=== PATIENT | female | born 1985 | race Caucasian/White ===

== ENCOUNTER 2023-01-08 22:40 | Emergency (ER) | payer OTHER ==
[2023-01-08 23:01] VITALS: O2SAT 97
[2023-01-08] MEDS: IPRATROPIUM/ALBUTEROL 3 ML NEB INH STA (23:25)
--- NOTE | 2023-01-09 00:23 | XRAY Report ---
PROCEDURE: Chest 1 View X-Ray INDICATIONS: SOA TECHNIQUE: One view of the chest was acquired. COMPARISON: None. FINDINGS: Surgical changes and devices: None. Lungs and pleura: Possible mild opacity is seen in the right medial lung base. Mediastinum: Normal heart size. Bones and chest wall: No suspicious bony lesions. Overlying soft tissues appear unremarkable. IMPRESSION: Possible mild opacity in the right medial lung base, representing atelectasis or mild airspace diseas e. Consider future imaging surveillance to assess for resolution. Reviewed by: Jeovanny Castillo MD on 01/09/2023 12:22 AM PDT Approved by: Jeovanny Castillo MD on 01/09/2023 12:22 AM PDT Station ID: [id number]
[2023-01-09] MEDS: IPRATROPIUM/ALBUTEROL 3 ML NEB INH STA (00:25)
[2023-01-09 00:27] LABS: B. PARAPERTUSSIS- RESP PCR PAN NOT DETECTED; B. PERTUSSIS- RESP PCR PANEL NOT DETECTED; C. PNEUMONIAE- RESP PCR PANEL NOT DETECTED; CORONAVIRUS 229E-RESP PCR NOT DETECTED; CORONAVIRUS HKU1-RESP PCR NOT DETECTED; CORONAVIRUS NL63-RESP PCR NOT DETECTED; CORONAVIRUS OC43-RESP PCR NOT DETECTED; HUMAN METAPNEUMOVIRUS NOT DETECTED; INFLUENZA A- RESP PCR PANEL NOT DETECTED; INFLUENZA B - RESP PCR PANEL NOT DETECTED; M. PNEUMONIAE- RESP PCR PANEL NOT DETECTED; PARAINFLUENZA VIRUS 1 NOT DETECTED; PARAINFLUENZA VIRUS 2 NOT DETECTED; PARAINFLUENZA VIRUS 3 NOT DETECTED; PARAINFLUENZA VIRUS 4 NOT DETECTED; RHINOVIRUS/ENTEROVIRUS NOT DETECTED; RSV- RESP PCR PANEL NOT DETECTED; SARS-CoV-2 -RESP PCR PANEL NOT DETECTED
--- NOTE | 2023-01-09 00:31 | ED Physician Documentation ---
PD HPI DYSPNEA - Stated complaint Stated Complaint: SOA - Chief complaint Chief Complaint: Resp - History obtained from History obtained from: Patient - Additional information Additional information: Patient is a 37-year-old female with a history of exercise-induced asthma presenting for evaluation of feeling short of breath since yesterday after hiking. She used her albuterol inhaler without any improvement. She reports having URI symptoms a week ago. Denies fever. No chest pain or abdominal pain. Review of Systems Constitutional: denies: Fever Cardiac: denies: Chest pain / pressure Respiratory: reports: Dyspnea, Cough GI: denies: Abdominal Pain PD PAST MEDICAL HISTORY - Present Medications Home Medications: Ambulatory Orders Medication Instructions Recorded Confirmed Albuterol Sulf [Ventolin Hfa 1 - 2 puffs INH Q4HR PRN #1 each 01/09/23 Inhaler] Amoxicillin 1,000 mg PO TID 10 Days #60 cap 01/09/23 predniSONE [Deltasone] 60 mg PO DAILY 5 Days #15 tablet 01/09/23 - Allergies Allergies/Adverse Reactions: Allergies Allergy/AdvReac Type Severity Reaction Status Date / Time No Known Drug Allergies Allergy Verified 01/08/23 22:51 PD ED PE NORMAL - General General: Alert and oriented X 3, No acute distress, Well developed/nourished - HEENT HEENT: Atraumatic, Moist mucous membranes, Pharynx benign - Neck Neck: Supple, no meningeal sign - Cardiac Cardiac: RRR, No murmur - Respiratory Respiratory: No respiratory distress, Other (Diffuse expiratory wheezing) - Abdomen Abdomen: Soft, Non tender - Derm Derm: Warm and dry - Extremities Extremities: No edema - Neuro Neuro: Normal speech Results - Vitals Vitals: Vital Signs - 24 hr 01/08/23 01/08/23 01/08/23 22:46 22:55 23:25 Temperature 36.9 C Heart Rate 103 H 86 Respiratory 18 22 24 Rate Blood Pressure 138/91 H O2 Saturation 95 97 If not protocol 2 2 : Oxygen Flow, liters/minute 01/09/23 01/09/23 01/09/23 00:30 01:12 02:11 Temperature 36.5 C Heart Rate 86 99 107 H Respiratory 24 18 28 H Rate Blood Pressure 153/85 H O2 Saturation 97 If not protocol 2 2 : Oxygen Flow, liters/minute 01/09/23 02:20 Temperature 36.8 C Heart Rate 118 H Respiratory 20 Rate Blood Pressure 150/80 H O2 Saturation 97 If not protocol : Oxygen Flow, liters/minute Oxygen O2 Source Room air Oxygen Flow Rate 2 - Labs Labs: Laboratory Tests 01/08/23 23:20 Nasal Adenovirus (PCR) NOT DETECTED Nasal B. parapertussis DNA (PCR) NOT DETECTED Nasal Coronavir 229E PCR NOT DETECTED Nasal Coronavir HKU1 PCR NOT DETECTED Nasal Coronavir NL63 PCR NOT DETECTED Nasal Coronavir OC43 PCR NOT DETECTED Nasal Enterovir/Rhinovir PCR NOT DETECTED Nasal Influenza B PCR NOT DETECTED Nasal Influenza A PCR NOT DETECTED Nasal Parainfluen 1 PCR NOT DETECTED Nasal Parainfluen 2 PCR NOT DETECTED Nasal Parainfluen 3 PCR NOT DETECTED Nasal Parainfluen 4 PCR NOT DETECTED Nasal RSV (PCR) NOT DETECTED Nasal B.pertussis DNA PCR NOT DETECTED Nasal C.pneumoniae (PCR) NOT DETECTED Andrzej Human Metapneumo PCR NOT DETECTED Nasal M.pneumoniae (PCR) NOT DETECTED Nasal SARS-CoV-2 (PCR) NOT DETECTED PD Medical Decision Making - ED course Complexity details: reviewed results, re-evaluated patient, d/w patient ED course: Patient is a 37-year-old female with a history of exercise-induced asthma with worsening shortness of breath since going on a hike yesterday and no relief from her inhaler. Oxygen saturations are stable. She is wheezing on exam. Chest x-ray shows concerns for right-sided pneumonia. She has recently had URI symptoms. Respiratory swab is negative for COVID, influenza, RSV and other respiratory viruses. Patient is feeling better after several neb treatments and initiation of prednisone. She is not requiring oxygen. Discussed treatment plan with course of antibiotics for pneumonia as well as prednisone and inhaler for asthma. She is advised on strict return precautions. Departure - Departure Disposition: Home, Self Care Clinical Impression: CAP (community acquired pneumonia), Asthma exacerbation Condition: Stable Instructions: ED Bronchitis Asthmatic, ED Pneumonia Adult Prescriptions: Albuterol Sulf [Ventolin Hfa Inhaler] 1 - 2 puffs INH Q4HR PRN #1 each PRN Reason: Shortness Of Air/Wheezing Amoxicillin 1,000 mg PO TID 10 Days #60 cap predniSONE [Deltasone] 60 mg PO DAILY 5 Days #15 tablet Comments: Your respiratory swab is negative for COVID, RSV, influenza and other common cold viruses. Your chest x-ray does show pneumonia in the right lung. You have also been treated for an asthma exacerbation and I have started you on a course of prednisone. I have sent prescriptions for an albuterol inhaler, prednisone and an antibiotic to [facility] in [place]. Please return to the emergency department with any worsening symptoms. Forms: PCP List Discharge Date/Time: 01/09/23 02:24
[2023-01-09] MEDS: predniSONE 20 MG TABLET PO STA (01:05)
[2023-01-09] MEDS: ALBUTEROL NEB 2.5 MG/3 ML INH STA (02:05)
[2023-01-09] MEDS: AMOXICILLIN 250 MG CAPSULE PO STA (02:17)
[2023-01-09 02:27] VITALS: BP 150/80
== END 2023-01-09 02:24 | disposition home or self-care (01) ==
LOC: EDBD → ED 22:40
DX: J18.9 Pneumonia, unspecified organism (principal); J45.901 Unspecified asthma with (acute) exacerbation; Z20.822 Contact with and (suspected) exposure to COVID-19; Z79.899 Other long term (current) drug therapy
CPT/HCPCS: 87633; 94640; 94664; 99284; 99285

== ENCOUNTER 2023-01-15 22:24 | Inpatient (IN) | payer OTHER ==
[2023-01-15] MEDS ORDERED: methylPREDNISolone SUCCINATE 125 MG/2 ML VIAL IVP STA (22:34)
[2023-01-15] MEDS ORDERED: IPRATROPIUM/ALBUTEROL 3 ML NEB INH STA (22:34)
--- NOTE | 2023-01-15 22:36 | ED Physician Documentation ---
PD HPI DYSPNEA - Stated complaint Stated Complaint: SOA - Chief complaint Chief Complaint: Resp - History obtained from History obtained from: Patient, Family - Additional information Additional information: 37-year-old woman with history of exercise-induced asthma, never hospitalized for same felt short of breath after a hike a week ago. Was seen by my partner here on that day, and improved after a nebulizer. Respiratory viral panel was negative and a chest x-ray showed possible mild pneumonia and she was started on amoxicillin and prednisone. Since then she is worsened and much worse today with significant shortness of breath, chest tightness, cough. PD PAST MEDICAL HISTORY - Past Medical History Respiratory: Asthma - Past Surgical History Past Surgical History: No - Present Medications Home Medications: Ambulatory Orders Medication Instructions Recorded Confirmed Albuterol Sulf [Ventolin Hfa 1 - 2 puffs INH Q4HR PRN #1 each 01/09/23 Inhaler] Amoxicillin 1,000 mg PO TID 10 Days #60 cap 01/09/23 predniSONE [Deltasone] 60 mg PO DAILY 5 Days #15 tablet 01/09/23 - Allergies Allergies/Adverse Reactions: Allergies Allergy/AdvReac Type Severity Reaction Status Date / Time No Known Drug Allergies Allergy Verified 01/15/23 22:36 - Social History Does the pt smoke?: No Smoking Status: Never smoker Does the pt drink ETOH?: No Does the pt have substance abuse?: No - Immunizations Immunizations are current?: Yes - POLST Patient has POLST: No PD ED PE NORMAL - Vitals Vital signs reviewed: Yes - General General: Alert and oriented X 3, Other (She appears ill and somewhat breathless and is anxious and tripoding) - HEENT HEENT: PERRL, Pharynx benign - Neck Neck: Supple, no meningeal sign, No bony TTP - Cardiac Cardiac: Other (Tachycardic but regular without murmur) - Respiratory Respiratory: Other (Severely diminished breath sounds throughout, tachypneic with wheezing throughout, most diminished at the right base.) - Extremities Extremities: No edema, No calf tenderness / cord - Neuro Neuro: Alert and oriented X 3, Normal speech Results - Vitals Vitals: Vital Signs - 24 hr 01/15/23 01/15/23 22:25 22:40 Temperature 36.5 C Heart Rate 125 H 124 H Respiratory 19 28 H Rate Blood Pressure 167/135 H O2 Saturation 91 L If not protocol 2 : Oxygen Flow, liters/minute Oxygen O2 Source Nasal cannula Oxygen Flow Rate 2 - EKG (time done) 2245 EKG releavant findings:: EKG personally interpreted by author of this note. Relevant findings are: Rate: Rate (enter#) (127) Rhythm: Sinus tachycardia [place]: Normal Intervals: Normal [place] QRS: Normal Ischemia: Non specific changes. No: ST elevation c/w ischemia Computer interpretation: Agree with computer - Labs Labs: Laboratory Tests 01/15/23 22:43 WBC 14.9 H RBC 4.63 Hgb 14.1 Hct 44.0 MCV 95.0 MCH 30.5 MCHC 32.0 RDW 12.2 Plt Count 232 MPV 11.1 H Neut # (Auto) 11.7 H Lymph # (Auto) 1.7 [place] # (Auto) 0.9 Eos # (Auto) 0.4 Baso # (Auto) 0.1 Absolute Nucleated RBC 0.00 Nucleated RBC % 0.0 PD Medical Decision Making - ED course ED course: 37-year-old woman with history of mild asthma was seen a week ago for an exacerbation potentially in the setting of a mild right-sided pneumonia as well placed on antibiotics and steroids. She is worse now and appears ill tonight with significant respiratory difficulty, wheezing. She was attended to immediately and is noted to be tachycardic, hypertensive, and modestly hypoxic. Administered a DuoNeb with 4 more albuterol nebs. Repeat chest x-ray to my eye does not show significant pneumonia, radiology read pending. Care to Dr. Aldana at 11 PM shift change pending reevaluation after initial therapeutic measures and follow-up on diagnostics. - Critical Care Time(min): 35 Time Includes: Direct patient care, Review records, Reassess patient, Document care, Coordinate care, Family consult for tx dec Data interpretation: Labs, Pulse ox Procedures included in critical care time: Peripheral IV Procedures excluded from critical care time: EKG Departure - Departure Clinical Impression: Status asthmaticus Forms: PCP List
[2023-01-15 22:48] LABS: BASOPHILS # (AUTO) 0.1 10^3/uL (0.0-0.1); BASOPHILS % (AUTO) 0.4 %; EOSINOPHILS # (AUTO) 0.4 10^3/uL (0.0-0.7); EOSINOPHILS % (AUTO) 2.8 %; HGB - HEMOGLOBIN 14.1 g/dL (12.0-16.0); LYMPHOCYTES # (AUTO) 1.7 10^3/uL (1.5-3.5); LYMPHOCYTES % (AUTO) 11.6 %; MEAN CORPUSCULAR HEMOGLOBIN 30.5 pg (27.0-31.0); MEAN PLATELET VOLUME 11.1 fL (7.9-10.8); MONOCYTES # (AUTO) 0.9 10^3/uL (0.0-1.0); NEUTROPHILS # (AUTO) 11.7 10^3/uL (1.5-6.6); NEUTROPHILS % (AUTO) 78.7 %; PLT - PLATELET COUNT 232 10^3/uL (130-450); RED BLOOD COUNT 4.63 10^6/uL (4.20-5.40); RED CELL DISTRIBUTION WIDTH 12.2 % (12.0-15.0); WHITE BLOOD COUNT 14.9 x10^3/uL (4.8-10.8)
[2023-01-15] MEDS ORDERED: ALBUTEROL NEB 2.5 MG/3 ML INH STA (22:51)
[2023-01-15 23:05] LABS: PHOSPHORUS 5.5 mg/dL (2.5-5.0)
--- NOTE | 2023-01-15 23:05 | XRAY Report ---
PROCEDURE: Chest 1 View X-Ray INDICATIONS: dyspnea TECHNIQUE: One view of the chest was acquired. COMPARISON: 01/08/2023. FINDINGS: Surgical changes and devices: None. Lungs and pleura: No pleural effusions or pneumothorax. Lungs are clear. Mediastinum: Mediastinal contours appear normal. Heart size is normal. Bones and chest wall: No suspicious bony lesions. Overlying soft tissues appear unremarkable. IMPRESSION: No acute cardiopulmonary process. Reviewed by: Juan José Aldana MD on 01/15/2023 11:03 PM PDT Approved by: Juan José Aldana MD on 01/15/2023 11:03 PM PDT Station ID: [id number]
[2023-01-15 23:09] LABS: TROPONIN I HIGH SENSITIVITY 3.6 ng/L (2.3-14.8)
[2023-01-15 23:52] LABS: ALBUMIN 4.3 g/dL (3.2-5.5); ALBUMIN/GLOBULIN RATIO 1.8 (1.0-2.2); BILIRUBIN,TOTAL 0.2 mg/dL (0.2-1.0); CALCIUM 9.3 mg/dL (8.5-10.3); CREATININE 0.7 mg/dL (0.6-1.3); POTASSIUM 4.1 mmol/L (3.5-4.5); TOTAL PROTEIN 6.7 g/dL (6.4-8.9)
[2023-01-16] MEDS ORDERED: LORazepam 2 MG/ML VIAL IVP STA (00:14)
[2023-01-16] MEDS ORDERED: ALBUTEROL NEB 2.5 MG/3 ML INH STA (00:31)
--- NOTE | 2023-01-16 00:49 | ED Physician Documentation ---
ED Addendum - Addendum Addendum: 01/16/23 00:45 The patient was signed out to me at change of shift, pending response to medications after presenting to the emergency department with severe difficulty breathing. Please see Dr. Ott's HPI for further details on the development of yara's asthma exacerbation. The patient was in the midst of receiving for albuterol nebulizer treatments along with a DuoNeb for a total of 12.5 mg of albuterol and 0.5 mg of Atrovent. She had also received IV Solu-Medrol. The drea harp was quite a bit improved in terms of air movement after the nebulizer treatments, compared with her presentation on arrival; however, she did still complain of shortness of breath. She was on 4 L of oxygen per nasal cannula initially because of low oxygen saturations in the 80s on room air. The patient was still having an oxygen saturation ranging from 89 to 91% even on the 4 L of oxygen, and still had some tight wheezing throughout her airways. She did have moderate air movement through her bilateral lung garcia, but with the persistent wheezing and the persistent mild hypoxia despite supplemental oxygen, I felt she should be admitted to the hospital. I spoke with the telehospitalist Dr. Beverly, who agreed to admit the patient to her service. Final impression: Status asthmaticus Disposition: Admit to hospitalist service in serious condition. 01/16/23 00:49
--- NOTE | 2023-01-16 00:49 | HISTORY & PHYSICAL EXAMINATION ---
Chief Complaint - Chief Complaint Chief Complaint: Shortness of breath History of Present Illness - Admitted From Admitted From:: ER - History Obtained From Records Reviewed: Yes History obtained from: Pt, Pt's partner, staff, chart Exam Limitations: Virtual exam - History of Present Illness HPI Comment/Other: H&P was conducted via video remotely, using Access Cart. Patient is in [place] Physician is in [place]. Pt's partner Aaron is at bedside. 37 yo F with PMH of Asthma presented to the ER with c/o 1 week h/o Shortness of breath. Pt's asthma is usually exercise-induced. She has never been hospitalized for her Asthma. About 2 weeks ago, she had URI symptoms, which resolved. Then, 1 week ago, she went hiking. She began to have Shortness of breath with wheezing and dry cough on the hike and came to the ER on 01/09/23 after the hike for these symptoms. Her Shortness of breath improved after a nebulizer treatment in the E R. Respiratory viral panel was negative and a chest x-ray showed possible mild pneumonia. Pt was discharged home with prescriptions for Amoxicillin and Prednisone. Over the past week, her symptoms have worsened. She c/o worse Shortness of breath with wheezing, dry cough, chest tightness, subjective F/C. No sputum. + Nausea. Pt had 1 episode of vomiting in the ER, non-bloody. No abdo pain. No BM change. +H/A. Pt has not slept x 1 week. +Anxiety. In the ER, SpO2 90% RA, 93% 2L NC O2, BP 167/135, HR 124, RR 28, WBC 14.9 CXR: NAD Pt was given Albuterol x 4 nebs, Duoneb x 1, SoluMedrol 125 mg IV, Ativan 1 mg IV in the ER. History - Past Medical History Respiratory: reports: Asthma, Pneumonia Psych: reports: Anxiety Other Past Medical History: Recent Pneumonia - POLST Patient has POLST: No Meds/Allgy - Home Medications Home Medications: Ambulatory Orders Medication Instructions Recorded Confirmed Albuterol Sulf [Ventolin Hfa 1 - 2 puffs INH Q4HR PRN #1 each 01/09/23 01/15/23 Inhaler] Amoxicillin 1,000 mg PO TID 10 Days #60 cap 01/09/23 01/15/23 - Allergies Allergies/Adverse Reactions: Allergies Allergy/AdvReac Type Severity Reaction Status Date / Time No Known Drug Allergies Allergy Verified 01/15/23 23:04 Review of Systems - All Other Systems All Other Systems: reports: Reviewed and negative Exam - Vital Signs Reviewed Vital Signs: Yes Vital Signs: Vital Signs x48h Temp Pulse Resp BP Pulse Ox O2 Flow Rate 01/16/23 00:00 125 H 33 H 155/95 H 92 4 01/15/23 23:30 135 H 24 144/89 H 90 L 01/15/23 23:01 131 H 25 H 119/95 H 98 01/15/23 22:55 126 H 28 H 2 01/15/23 22:40 124 H 28 H 2 01/15/23 22:25 36.5 C 125 H 19 167/135 H 91 L - Physical Exam General Appearance: positive: Mild distress, Anxious Eyes Bilateral: positive: EOMI, No scleral icterus Respiratory: positive: Other (Access cart stethoscope not working; per ER Provider: Severely diminished breath sounds throughout, tachypneic with wheezing throughout, most diminished at the right base.) Cardiovascular: positive: Other (Access cart stethoscope not working; per ER Provider: RR, Tachycardia, no murmurs) Abdomen: positive: Other (per ER Provider: non-distended, NT, Soft) Extremities: positive: Full ROM, No pedal edema Neurologic/Psychiatric: positive: Oriented x3, CN's nml (2-12) Conclusion/Plan - Problem List (1) Asthma exacerbation Conclusion/Plan: Asthma Exacerbation Shortness of Breath Cough Hypoxia Leukocytosis Tachycardia Tachypnea Outpatient treatment Failure -O2 support PRN -Duonebs PRN -Mag SO4 -steroid MDI, Singulair -SoluMedrol 40 mg IV daily, Rocephin Elevated BP No h/o HTN -Hydralazine PRN Nausea/Vomiting -IVF -clear liquid diet; advance as tolerated -anti-emetics PRN Anxiety Insomnia -D/W pt -Restoril ordered PRN Insomnia -Ativan PRN anxiety Hyperglycemia -Glc 138 -poss d/t steroids -check Hgba1c VTE Prophylaxis: Lovenox Code Status: Full Code ~Deedee Beverly MD Hospitalist - Lab Results Fish Bones: 01/15/23 22:43 01/15/23 22:43
[2023-01-16] MEDS ORDERED: ONDANSETRON 4 MG/2 ML VIAL IVP PRN (00:55)
[2023-01-16] MEDS ORDERED: SODIUM CHLORIDE FLUSH 0.9% 10 ML SYRINGE IVP PRN (00:55)
[2023-01-16] MEDS ORDERED: ONDANSETRON ODT 4 MG TABLET TL PRN (00:55)
[2023-01-16] MEDS ORDERED: SODIUM CHLORIDE 0.9% 1,000 ML IV SCH ×2 (01:00→07:45)
[2023-01-16] MEDS ORDERED: TEMAZEPAM 15 MG CAPSULE PO PRN (01:01)
[2023-01-16] MEDS ORDERED: MAGNESIUM SULFATE 1 GM/2 ML VIAL IVP STA (01:28)
[2023-01-16] MEDS ORDERED: hydrALAZINE 10 MG TABLET PO PRN (01:30)
[2023-01-16] MEDS: SODIUM CHLORIDE FLUSH 0.9% 10 ML SYRINGE IVP SCH ×3 (02:05→21:13)
[2023-01-16] MEDS ORDERED: MAGNESIUM SULFATE 2 GRAM 2 GM/50 ML BAG IV ONE (03:00)
[2023-01-16] MEDS: LORazepam 1 MG TABLET PO PRN ×3 (05:21→21:13)
[2023-01-16] MEDS: ALBUTEROL NEB 2.5 MG/3 ML INH PRN ×3 (05:34→19:09)
[2023-01-16 05:47] LABS: BASOPHILS # (AUTO) 0.1 10^3/uL (0.0-0.1); BASOPHILS % (AUTO) 0.3 %; EOSINOPHILS % (AUTO) 0.2 %; HCT - HEMATOCRIT 41.9 % (37.0-47.0); HGB - HEMOGLOBIN 13.6 g/dL (12.0-16.0); LYMPHOCYTES # (AUTO) 0.4 10^3/uL (1.5-3.5); LYMPHOCYTES % (AUTO) 2.7 %; MEAN CORPUSCULAR HEMOGLOBIN 30.6 pg (27.0-31.0); MEAN CORPUSCULAR HGB CONC 32.5 g/dL (32.0-36.0); MEAN CORPUSCULAR VOLUME 94.2 fL (81.0-99.0); MEAN PLATELET VOLUME 10.8 fL (7.9-10.8); MONOCYTES # (AUTO) 0.1 10^3/uL (0.0-1.0); MONOCYTES % (AUTO) 0.8 %; NEUTROPHILS # (AUTO) 14.9 10^3/uL (1.5-6.6); NEUTROPHILS % (AUTO) 95.5 %; PLT - PLATELET COUNT 307 10^3/uL (130-450); RED BLOOD COUNT 4.45 10^6/uL (4.20-5.40); RED CELL DISTRIBUTION WIDTH 12.2 % (12.0-15.0); WHITE BLOOD COUNT 15.6 x10^3/uL (4.8-10.8)
[2023-01-16 06:05] LABS: CALCIUM 9.1 mg/dL (8.5-10.3); CREATININE 0.6 mg/dL (0.6-1.3); MAGNESIUM 2.4 mg/dL (1.7-2.3); POTASSIUM 4.2 mmol/L (3.5-4.5)
[2023-01-16] MEDS: BUDESONIDE 0.5 MG/2 ML NEB INH SCH ×2 (06:08→19:08)
[2023-01-16] MEDS: ACETAMINOPHEN 325 MG TABLET PO PRN ×2 (08:41→12:48)
[2023-01-16] MEDS: methylPREDNISolone SUCCINATE 40 MG/ML VIAL IVP SCH ×3 (08:41→21:13)
[2023-01-16] MEDS: cefTRIAXone 1 GM in SODIUM CHLORIDE 0.9% MINIBAG 100 ML IV SCH (08:56)
[2023-01-16] MEDS ORDERED: methylPREDNISolone SUCCINATE 40 MG/ML VIAL IVP SCH (09:00)
[2023-01-16] MEDS: AZITHROMYCIN INJ 500 MG in SODIUM CHLORIDE 0.9% 250 ML IV SCH (10:06)
[2023-01-16] MEDS: ENOXAPARIN 40 MG/0.4 ML SYRINGE SUBQ SCH (10:12)
[2023-01-16 11:50] LABS: ESTIMATED AVERAGE GLUCOSE 105 mg/dL (70-100); HEMOGLOBIN A1c% 5.3 % (4.27-6.07)
[2023-01-16] MEDS ORDERED: MONTELUKAST 10 MG TABLET PO SCH (21:00)
[2023-01-17] MEDS: SODIUM CHLORIDE FLUSH 0.9% 10 ML SYRINGE IVP SCH ×2 (00:04→09:32)
[2023-01-17 05:25] LABS: BASOPHILS % (AUTO) 0.2 %; HCT - HEMATOCRIT 41.4 % (37.0-47.0); HGB - HEMOGLOBIN 13.3 g/dL (12.0-16.0); LYMPHOCYTES # (AUTO) 0.9 10^3/uL (1.5-3.5); LYMPHOCYTES % (AUTO) 4.5 %; MEAN CORPUSCULAR HEMOGLOBIN 30.2 pg (27.0-31.0); MEAN CORPUSCULAR HGB CONC 32.1 g/dL (32.0-36.0); MEAN CORPUSCULAR VOLUME 94.1 fL (81.0-99.0); MEAN PLATELET VOLUME 10.7 fL (7.9-10.8); MONOCYTES % (AUTO) 4.8 %; NEUTROPHILS # (AUTO) 18.5 10^3/uL (1.5-6.6); NEUTROPHILS % (AUTO) 89.7 %; PLT - PLATELET COUNT 304 10^3/uL (130-450); RED CELL DISTRIBUTION WIDTH 12.6 % (12.0-15.0); WHITE BLOOD COUNT 20.7 x10^3/uL (4.8-10.8)
[2023-01-17] MEDS: methylPREDNISolone SUCCINATE 40 MG/ML VIAL IVP SCH (06:18)
[2023-01-17 06:30] LABS: DIFFERENTIAL COMMENT MANUAL=AUTO DIFF; PLATELET ESTIMATE, MANUAL NORMAL (130-450,000) (NORMAL); RBC MORPHOLOGY (MULTIPLE) NORMAL APPEARANCE (NORMAL)
[2023-01-17] MEDS: BUDESONIDE 0.5 MG/2 ML NEB INH SCH (07:54)
[2023-01-17] MEDS: cefTRIAXone 1 GM in SODIUM CHLORIDE 0.9% MINIBAG 100 ML IV SCH (08:41)
[2023-01-17] MEDS: AZITHROMYCIN INJ 500 MG in SODIUM CHLORIDE 0.9% 250 ML IV SCH (09:28)
[2023-01-17] MEDS: ENOXAPARIN 40 MG/0.4 ML SYRINGE SUBQ SCH (09:31)
[2023-01-17 09:51] LABS: CALCIUM 9.3 mg/dL (8.5-10.3); CREATININE 0.7 mg/dL (0.6-1.3); POTASSIUM 3.9 mmol/L (3.5-4.5)
[2023-01-17 11:39] VITALS: BP 121/76; O2SAT 95
--- NOTE | 2023-01-17 11:51 | PHARMACY PROGRESS NOTE ---
- Best Possible Medication History Admit Date and Time: 01/16/23 0055 Processed by: Pharmacy Medication History completed: Yes Patient Interview: Completed Secondary Source(s): Pharmacy records, Insurance records As the person ultimately responsible for medication therapy, providers are able to order a medication from an existing home medication list in [facility] via the "Reconcile Routine" prior to Confirmation of that medication by help desk support. Such practice is discouraged except when the physician, in their clinical judgment, deems that a medical need exists for a medication without regard to previous use.
--- NOTE | 2023-01-17 11:54 | Discharge Plan ---
Discharge Plan Problem Reviewed?: Yes Disposition: Home, Self Care Condition: Fair Prescriptions: Fluticasone/Salmeterol [Advair 250-50 Diskus] 1 each IH BID #1 each methylPREDNISolone [Medrol Dose Pack] 1 each PO .PACKAGEINSTRUCTIONS 6 Days #1 each Montelukast [Singulair] 10 mg PO QPM #30 tab Diet: Regular Activity Restrictions: Additional Comments (No work until January 23.) Shower Restrictions: No Driving Restrictions: No Health Concerns: You have a long history of probable exercise-induced asthma but have not been formally diagnosed with that. But in the last week, after bronchitis with a viral infection, coughing appears to be worse. It accelerated to the point of a jens asthma attack. You were treated in the outpatient setting with an inhaler but that did not improve your wheezing and coughing and you came to the emergency room. You were found to have severe asthma with a very low oxygen level. You were struggling to breathe. You have now been stabilized with steroids, allergy medication in the form of Singulair, inhalation treatment with albuterol asthma medicine. You were also on intravenous steroids. Plan of Treatment: Your chest x-ray does not have signs of infection, but some studies show that if you give the patient empiric antibiotics, they sometimes do better. You received 2 days of ceftriaxone, 2 days of azithromycin. Please complete the amoxicillin therapy that was ordered on January 09. I have also started you on a new long-acting bronchodilator that has both a bro nchial tube horse buyer, and anti-inflammatory. The horse buyer is salmeterol. The anti-inflammatory is fluticasone. Take this medication once in the morning, and once in the evening. Make sure you rinse your mouth out afterwards because it can cause Amparo of the mouth. The other medication will be your Ventolin bronchodilator that you will take 1 puff 3 times a day. As you improve that can be as needed. You do not have to take that on a regular basis. Please establish yourself with a primary care provider. The primary care provider will need to taper your use of the Advair long-acting inhaler. You are currently on 250 mcg of steroids. You can then be tapered to 100 mcg of fluticasone. Eventually will be tapered off completely and only be using the Ventolin as needed. Remember that I explained that asthma is a disease that is always present. It can flare and cause severe asthma/wheezing. But and then go back down to having no symptoms. But it is always there. Your primary care provider can guide you about when to add medications or go back down on medications. You will also be discharged on a tapering dose of oral steroids. And I would also like you to take Singulair 10 mg a day for anti-inflammation of the bronchial tubes. That may also be taken off in the next month but please discuss this with your primary care provider. Care Goals: To have minimal asthma symptoms. Assessment: Patient is alert, oriented to person place and time. Committed to finding a new primary care provider in stabilizing her asthma disease. No Smoking: If you smoke, Please STOP! Call for help.
--- NOTE | 2023-01-17 12:08 | DISCHARGE SUMMARY ---
"Discharge Summary Admit Date: 01/16/23 Discharge Date: 01/17/23 Condition at Discharge: Fair Discharge Disposition: 01 Home, Self Care - DIAGNOSES Discharge Diagnoses with Status of Each Condition: 1. Acute respiratory failure with hypoxia 2. Status asthmaticus 3. Outpatient treatment failure 4. Elevated blood pressure 5. Nausea and vomiting 6. Anxiety 7. Hyperglycemia due to steroids - HPI History of Present Illness: 37 yo F with PMH of Asthma presented to the ER with c/o 1 week h/o Shortness of breath. Pt's asthma is usually exercise-induced. She has never been hospitalized for her Asthma. About 2 weeks ago, she had URI symptoms, which resolved. Then, 1 week ago, she went hiking. She began to have Shortness of breath with wheezing and dry cough on the hike and came to the ER on 01/09/23 after the hike for these symptoms. Her Shortness of breath improved after a nebulizer treatment in the ER. Respiratory viral panel was negative and a chest x-ray showed possible mild pneumonia. Pt was discharged home with prescriptions for Amoxicillin and Prednisone. Over the past week, her symptoms have worsened. She c/o worse Shortness of breath with wheezing, dry cough, chest tightness, subjective F/C. No sputum. + Nausea. Pt had 1 episode of vomiting in the ER, non-bloody. No abdo pain. No BM change. +H/A. Pt has not slept x 1 week. +Anxiety. In the ER, SpO2 90% RA, 93% 2L NC O2, BP 167/135, HR 124, RR 28, WBC 14.9 CXR: NAD Pt was given Albuterol x 4 nebs, Duoneb x 1, SoluMedrol 125 mg IV, Ativan 1 mg IV in the ER. - Past Medical History Respiratory: reports: Asthma, Pneumonia Psych: reports: Anxiety Other Past Medical History: Recent Pneumonia - CONSULTS | PROCEDURES Procedures: No acute cardiopulmonary process on chest x-ray - HOSPITAL COURSE Hospital Course: The patient was placed on intravenous steroids, empiric antibiotics, Singulair, Perforomist and budesonide. She was initially tripoding, struggling to breathe, tachypneic and hypoxic. Within 12 to 18 hours she was able to lay back comfortably. Within 24 to 30 hours she was sitting up in a chair. She recovered much more quickly than we thought she was going to. From her history, and failure to respond to outpatient management, we thought she would need 48 to 72 hours. She is now discharged in stable condition at 24 hours. Asthma as a disease process was described to her. She may have exercise-induced asthma versus atopic asthma. Is been going on for months if not all of her life with the first severe abduction laceration being this episode. I am asking her to please establish yourself with a primary care provider. Hopefully her asthma can be stabilized through their care. If not she can be referred to pulmo nology. Once her asthma started becoming better controlled, blood pressure came down with this. Glucose is noted to be elevated and most likely due to her steroids. A1c is 5.3%. But I would asked that she follow-up with us in the outpatient setting. At discharge I am giving her prescription for Advair but it can be substituted to other long-acting medication. She will continue albuterol. She will complete empiric antibiotics with amoxicillin for 4 more days. I am starting Singulair. Medrol Dosepak. Again, I am emphasized that she needs to follow through with her primary care provider. I am asking her not to work until January 23. She is discharged in stable condition and has already gotten out of bed and brush her teeth, brush her hair, and put on make-up. She is anxious to go home. She was tripoding yesterday, and today she is sitting comfortably in a chair watching TV after eating breakfast. She is not tachypneic, and getting up to walk or speaking to me does not result in tachypnea or increased labored respiration. Temperature is 36.8, heart rate 87, blood pressure 121/76, respirations 16, 95% on room air. Lungs are completely clear to auscultation and percussion. Regular rate and rhythm. Greater than 30 minutes spent coordinating discharge This document was made in part using voice recognition software. While efforts are made to proofread this document, sound alike and grammatical errors may occur. - ALLERGIES Allergies/Adverse Reactions: Allergies Allergy/AdvReac Type Severity Reaction Status Date / Time No Known Drug Allergies Allergy Verified 01/15/23 23:04 - MEDICATIONS Home Medications: Ambulatory Orders Medication Instructions Recorded Confirmed Albuterol Sulf [Ventolin Hfa 1 - 2 puffs INH Q4HR PRN #1 each 01/09/23 01/17/23 Inhaler] Amoxicillin 1,000 mg PO TID 10 Days #60 cap 01/09/23 01/17/23 Fluticasone/Salmeterol [Advair 1 each IH BID #1 each 01/17/23 250-50 Diskus] Montelukast [Singulair] 10 mg PO QPM #30 tab 01/17/23 methylPREDNISolone [Medrol Dose 1 each PO .PACKAGEINSTRUCTIONS 6 01/17/23 Pack] Days #1 each - LABS Result Diagrams: 01/17/23 04:55 01/17/23 09:30"
== END 2023-01-17 12:46 | disposition home or self-care (01) | DRG 203 ==
LOC: ED 22:24 → MS2 01-16 00:55
PROVIDERS: ADMIT Internal Medicine; ATTEND Specialist
DX: J45.902 Unspecified asthma with status asthmaticus (principal); R00.0 Tachycardia, unspecified; R11.2 Nausea with vomiting, unspecified; F41.9 Anxiety disorder, unspecified; R73.9 Hyperglycemia, unspecified; T38.0X5A Adverse effect of glucocorticoids and synthetic analogues, initial encounter; Z87.01 Personal history of pneumonia (recurrent); D72.829 Elevated white blood cell count, unspecified; R03.0 Elevated blood-pressure reading, without diagnosis of hypertension
CPT/HCPCS: 36415; 71045; 80048; 80053; 83036; 83735; 83880; 84100; 84484; 85025; 93005; 94640; 96374; 96375; 99285; 99291; A9270; J1650; J2060; J7626; J8499